=== PATIENT | female | born 1960 | race Caucasian/White ===

== ENCOUNTER → 2017-05-31 | Day surgery (SDC) | payer OTHER ==
[2017-05-31] VITALS (7 sets, daily range): BP systolic 135–152; BP diastolic 67–85; PULSE 62–74; RESP 13–17; O2SAT 97–99
[~2017-05-31] VITALS: Ht 166.4 cm; Wt 63.8 kg
[~2017-05-31] MED LIST: ANTIHISTAMINE; Dexamethasone 4 mg/mL Inj ONE; EPHEDrine Sulfate 50 mg/mL Inj IVPUSH PRN; HYDROmorphone 1 mg/mL Inj IVPUSH PRN; LISI-567 PO; Lactated Ringer's 1,000 ML IV ONE; Lactated Ringer's 1,000 ML IV SCH; Lactated Ringer's 500 ML IV PRN; MetoCLOpramide 5 mg/mL 2 mL Inj IVPUSH PRN; Ondansetron 2 mg/mL 2 mL Inj IVPUSH PRN; Ondansetron 2 mg/mL 2 mL Inj ONE; Phenylephrine 10,000 mCg/mL Inj IVPUSH PRN; Propofol 10 mg/mL 20 mL Inj ONE; diphenhydrAMINE 25 mg Capsule PO PRN; fentaNYL-PF 50 mCg/mL 2 mL Inj IVPUSH PRN; fentaNYL-PF 50 mCg/mL 2 mL Inj ONE
--- NOTE | 2017-05-31 13:27 | PCM.HPANE ---
Patient Data Surgeon Admitting Provider: Attending Provider:Yobani Lamar MD Primary Care Physician:Ceferino Waters MD Other Provider:[facility] Reason for Visit Postmenopausal Bleeding Ht/WT & BMI Height (Feet): 5 Height (Inches): 5.50 Weight (Kilograms): 63.8 Body Mass Index 23.00 Allergies Coded Allergies: No Known Allergies (Verified , 05/25/17) Past Anesthesia History Anesthesia History: Denies:: Abnormal Airway, Anesthesia Reactions, Difficult Intubation, Fam Anesthesia Reaction Diabetes History Hx Diabetes?: No MRSA MRSA: No Medications Hypertension Medication: Yes Home Meds Incl Beta Lashay: No Reported Medications [otc antihistamine] No Conflict Check1 DAILY PRN seasonal allergies 05/25/17 Lisinopril 20 Mg [id number] Mg PO DAILY 30 Days Ref 0 05/25/17 History History of ENT Problems?: Yes HEENT History: Positive for:: Sinus Problem (seasonal allergies) Denies:: Abnormal Airway Cataracts Difficult Intubation Dysphagia Glaucoma Hearing Problem TMJ (hx of grinding, no nightguard) Denture Type: None Teeth Condition: Within Normal Limits Missing Teeth Hx of Heart Problems?: No Cardiovascular History: Positive for:: Hypertension Denies:: AICD Abdominal Aortic Aneurism Atrial Fibrillation Chest Pain Edema Heart Murmur Irregular Heartbeat Pacemaker Peripheral Vascular Hx of Respiratory Problem?: No Respiratory History: Denies:: Asthma COPD Emphysema Oxygen Administration Pneumonia Tuberculosis Use of C-PAP Machine Use of Inhalers / NEBS Hx Neurologic Problems?: No Neurological History: Denies:: Alzheimer's Disease CVA Dizziness Headaches Multiple Sclerosis Parkinson's Disease Seizures TIA Hx of GI Problems?: No Hx of Problems?: No Genitourinary History: Denies:: HX of Hemodialysis Kidney Stones Urinary Tract Infection Female Hx: Denies:: Currently (tubal) Problems with Breasts? Other History/Comment Post menopausal bleeding Skin History: Denies:: History Skin Disorders? Pressure Ulcers Hx Musculoskeletal Problems?: No Musculoskeletal History: Denies:: Back Injury Degenerative Joint Fibromyalgia Joint Replacement Musculoskeletal Trauma Myasthenia Gravis Osteoarthritis Systemic Lupus Hx of Psycho/Social Problems?: No Psycho Social History: Denies:: Anxiety Hx Depression Hx Surgeries?: Yes (C section, tubal, issac) Hx Any Other Health Problems?: Yes Other History: Denies:: Cancer Thyroid Disease History Blood Transfusions: Positive for:: Accept Blood Products? Denies:: Blood Transfusions Hx Diabetes: No Hx Alcohol Use: YesAlcoholic Drinks Per Day: a few drinks on weekendsHx Substance Use: NoHave You Smoked inLast 12 mo: No Stop/Bang S-Snoring: Do You Snore Loudly: No T-Tired: feel tired, fatigued: No O-Obsered: Observed not breath: No P-Blood Pressure: treated: Yes B- Body Mass Index > 35 kg/m2: No A- Age over 50: Yes N- Neck Large Circumference: No G- Gender Male: No QI Total Score: 2 QI Risk Assessment: Low Risk, <3 Yes Risk Assessment Category Category 1A: Patient has history of documented sleep apnea, and HAS NOT received any narcotic, sedative or anesthesia administration during this stay. Category 1B: Patient has history of documented sleep apnea, and HAS received any narcotic , sedative or anesthesia administration during this stay Category 2: Patient has SUSPECTED Obstructive Sleep Apnea, and HAS received any narcotic , sedative or anesthesia administration during this stay. Category 3: Patient has SUSPECTED Obstructive Sleep Apnea and HAS NOT received narcotic, sedative or anesthesia administration during this stay. Category 4: Outpatient in Procedural Areas with known sleep apnea or who screen positive for High Risk via the STOP/BANG questionnaire. Exam Exam Vital Signs Vital Signs Date Time Temp Pulse Resp B/P Pulse Ox O2 Delivery O2 Flow Rate FiO2 05/31/17 12:44 36.2 74 17 135/76 97 Room Air General Appearance: Alert, Oriented X3, Cooperative, No Acute Distress HEENT/AIRWAY: MP 2 Lungs: Clear to Auscultation, Normal Air Movement Heart: Exam Unremarkable, Regular Rate/Rhythm, No Murmurs/Rubs/Gallops Meds/Labs/Diagnostics Admission Meds Current Medications Lactated Ringer's (Lr) 1,000 ml @ ud STK-MED ONCE IV Last administered on 05/31t 13:01; Start 05/31/17 at 13:01; Stop 05/31/17 at 13:02; Status DC Plan Impression Patient chart reviewed, patient interviewed and anesthestic plan with risks, benefits, and alternatives discussed, and informed consent obtained. NPO per Anesth. Guidelines: Yes ASA Physical Status: ASA2 Mod Systemic Disease Anesthetic Plan: GA Bene/Risks/Altern/Consents: Yes HP Complete Prior to Induction: Yes Silverio Fraser MD May 31, 2017 13:27
--- NOTE | 2017-05-31 14:57 | PCM.ANEP1 ---
Post Anesthesia PACU Phase 1 Assessment Date of Service: May 31, 2017 Vital Signs Vital Signs Date Time Temp Pulse Resp B/P Pulse Ox O2 Delivery O2 Flow Rate FiO2 05/31/17 12:44 36.2 74 17 135/76 97 Room Air Anesthetic Administered: GA Level of Alertness: Awake, talking RAM's with Equal Strength: Yes Pain: No Nausea or Vomiting: No CV Function & Hydration Stable: Yes Airway Device: Oxygen Delivery: Room Air Lungs: Clear to Auscultation, Normal Air Movement PACU Phase 2 Assessment Complications: No Follow up Care: No Patient Instructions Provided: N/A Silverio Fraser MD May 31, 2017 14:57
--- NOTE | 2017-05-31 15:53 | OP ---
[address] [address] OPERATIVE REPORT PATIENT: LEANNA WATTS : 1960 MR#: [id number] ADMIT: 05/31/2017 JOB ID: [id number] DATE OF SURGERY: 05/31/2017 PREOPERATIVE DIAGNOSIS(ES): A 56-year-old 2, para 2 with three years of postmenopausal bleeding. Ultrasound showed mid uterine fibroid 4.1 x 4 x 3.3 intramural with submucosal extension, 7 mm. The patient opted to proceed with hysteroscopy D and C and the MyoSure excision of endometrial pathology. POSTOPERATIVE DIAGNOSIS(ES): 1. A 56-year-old 2, para 2 with three years of postmenopausal bleeding. Ultrasound showed mid uterine fibroid 4.1 x 4 x 3.3 intramural with submucosal extension, 7 mm. The patient opted to proceed with hysteroscopy D and C and the MyoSure excision of endometrial pathology. 2. MyoSure endometrial polyps. SURGERY: 1. Hysteroscopy D and C. 2. MyoSure polypectomy. SURGEON: Yobani Lamar M.D. ANESTHESIA: General endotracheal. ASSISTANTS: None. ESTIMATED BLOOD LOSS: Nil. INTRAVENOUS FLUIDS: 700 cc of crystalloid. URINE OUTPUT: In and out catheter at the beginning of the procedure retrieved 10 cc of clear urine. Hysteroscopic distention media was normal saline with a deficit of 220 at the end of the procedure 220 cc. SPECIMEN REMOVED: Endometrial curettage, cervical curettage and endometrial polyp all sent to Pathology. COMPLICATIONS: None. PACKS: None. CATHETERS: None. DRAINS: None. OPERATIVE FINDINGS: Examination under anesthesia revealed no adnexal masses appreciated bilaterally. Ten week size mid-position uterus. INTRAOPERATIVE FINDINGS: Uterus sounded to 9 cm. Hysteroscopic findings: Tubal ostia visualized bilaterally and no masses visualized inside the uterus. Normal cervical canal. Normal endometrium with two small polyps. The first was located at the 11 o'clock position close to the right tubal ostia, around 1 x 0.5 cm in diameter. The second was noted behind the first one, broad based, around 0.5 x 0.5 cm in diameter. Both polyps were completely excised using the MyoSure device. No other masses observed. PROCEDURE: Risks, benefits and alternatives of the procedure discussed with the patient. Informed consent signed. The patient moved to the OR with IV running. After general anesthesia was found to be adequate, the patient was placed in dorsal lithotomy position. Examination under anesthesia revealed the above findings. The patient was then prepped and draped in a normal sterile fashion. Weighted speculum inserted into the patient's vagina. Anterior lip of the cervix grasped with a single-tooth tenaculum and uterus sounded to 9 cm with the uterine sound. Then cervix was dilated up to Hegar dilator #6 without difficulty. The MyoSure scope was introduced without difficulty into the uterine cavity with normal saline as distention media. The above findings were noted. Then, the MyoSure device was introduced and both polyps were completely excised. Then the cystoscope was removed from patient's uterus and a sharp curette introduced for cervical curettage followed by endometrial sharp curettage. Then the scope was introduced into the uterus for a second look and pictures taken. All instruments removed from patient's vagina and anterior lip of the cervix. The single-tooth tenaculum insertion site was bleeding. This was controlled with Monsel solution. Good hemostasis assured at the end of the procedure. The patient tolerated the procedure well. Sponge and instrument counts were correct x2. Dr. Lamar was present and scrubbed for the entire procedure. The patient moved to recovery in stable condition.
--- NOTE | 2017-06-06 13:33 | PATH ---
SURGICAL PATHOLOGY Attending Physician:Yobani Lamar MD CASE STATUS: Signed Out PATIENT NAME: LEANNA WATTS PID: [id number] : 1960 DATE COLLECTED:05/31/2017 00:00 SPECIMEN: 1: Endometrium, Biopsy 2: Endocervix, Curettage 3: Endometrium, Curettage CLINICAL HISTORY: POSTMENOPAUSAL BLEEDING 1). ENDOMETRIAL POLYP 2). ENDOCERVICAL CURETTING 3). ENDOMETRIAL CURETTING FINAL DIAGNOSIS: 1.ENDOMETRIAL POLYP, BIOPSY: CONSISTENT WITH ENDOMETRIAL POLYP. Negative for neoplasm. Detached fragment of squamous epithelium negative for neoplasm. 2.ENDOCERVIX, CURETTAGE: PREDOMINANTLY SQUAMOUS EPITHELIUM, NEGATIVE FOR NEOPLASM. FEW STRIPS OF ENDOCERVICAL MUCOSA, NEGATIVE FOR NEOPLASM. 3.ENDOMETRIUM, CURETTAGE: ENDOMETRIAL, ENDOCERVICAL, AND SQUAMOUS MUCOSA NEGATIVE FOR NEOPLASM. ICD10 N95.0 GROSS DESCRIPTION: 1. Received in formalin, labeled with the patient's name and "endometrial polyp" are multiple fragments of marmolejo mucoid tissue measuring 2.0 x 1.5 x 0.3 cm in aggregate. The fragments are totally submitted in cassette 1A. 2. Received in formalin, labeled with the patient's name and "endocervical curetting" are multiple fragments of dark mucoid tissue measuring 2.0 x 1.5 x 0.3 cm in aggregate. The fragments are totally submitted in cassette 2A. 3. Received in formalin, labeled with the patient's name and "endometrial curettings" are multiple fragments of dark mucoid tissue measuring 2.0 x 0.7 x 0.1 cm in aggregate. The fragments are totally submitted in cassette 3A. [id number]) MICRO DESCRIPTION: See diagnosis. ICD-9 CODES: CPT CODES: 1: 11284 2: 95616 3: 23081 Electronically Signed Out Rio Mcintyre MD, Ph.D. [facility] [place] [address] Technical component performed at [facility], [address], [place], [address]
== END | disposition home or self-care (01) ==
LOC: SAS 12:02
PROVIDERS: ATTEND Obstetrics & Gynecology
DX: N95.0 Postmenopausal bleeding (principal); I10 Essential (primary) hypertension
CPT/HCPCS: 58558; J1100; J2405; J2704; J3010; J7120